=== PATIENT | female | born 1965 | race Caucasian/White ===

== ENCOUNTER 2021-08-02 15:24 | Inpatient (IN) | payer BC ==
[~2021-08-02] VITALS: Ht 149.9 cm; Wt 78.0 kg
[2021-08-02] MEDS ORDERED: SODIUM CHLORIDE 0.9% 500 ML IV ONE (17:00)
[2021-08-02 17:03] LABS: CLARITY URINE CLEAR (CLEAR); COLOR URINE YELLOW (YELLOW); KETONES URINE NEGATIVE (NEGATIVE); LEUKOCYTE ESTERASE URINE NEGATIVE (NEGATIVE); NITRITE URINE NEGATIVE (NEGATIVE); OCCULT BLOOD URINE NEGATIVE (NEGATIVE); PH URINE 6.5 (4.5-8.0); PROTEIN URINE NEGATIVE (NEGATIVE); UROBILINOGEN URINE 0.2 E.U./dL (0.2-1.0)
[2021-08-02 17:05] LABS: EOSINOPHILS % 10.4 % (0.0-5.0); HEMATOCRIT. 38.3 % (36.0-48.0); HEMOGLOBIN. 12.6 g/dL (12.0-16.0); LYMPHOCYTES % 16.8 % (20.0-50.0); MEAN CORPUSCULAR HEMOGLOBIN 28.3 pg (28.0-32.0); MEAN PLATELET VOLUME 7.7 fl (7.4-10.4); MONOCYTES % 6.9 % (2.0-8.0); NEUTROPHILS % 64.9 % (40.0-76.0); PLATELET 554 x1000/uL (130-400); RED BLOOD CELL COUNT 4.45 mill/uL (4.2-5.4); RED CELL DISTRIBUTION WIDTH 13.4 % (11.6-14.6)
[2021-08-02 17:11] LABS: CHLORIDE 110 mEq/L (98-107)
[2021-08-02 17:22] LABS: *AMPHETAMINES SCREEN URINE NEGATIVE (NEGATIVE); *BARBITURATES SCREEN URINE NEGATIVE (NEGATIVE)
[2021-08-02 17:23] LABS: *BENZODIAZEPINES SCREEN URINE NEGATIVE (NEGATIVE); *COCAINE SCREEN URINE NEGATIVE (NEGATIVE); METHADONE URINE SCREEN NEGATIVE (NEGATIVE); OPIATES URINE SCREEN NEGATIVE (NEGATIVE); PHENCYCLIDINE URINE SCREEN NEGATIVE (NEGATIVE)
[2021-08-02 17:24] LABS: CANNABINOID URINE SCREEN NEGATIVE (NEGATIVE)
[2021-08-03] MEDS ORDERED: FEXO1TAB MT (09:36)
[2021-08-03] MEDS ORDERED: FLUT1DIS3 INH (09:36)
[2021-08-03] MEDS ORDERED: SIMV5TAB58 PO (09:36)
[2021-08-03] MEDS ORDERED: ALBU6.7H9 INH (09:36)
[2021-08-03] MEDS ORDERED: LIDOCAINE HCL/PF 1% 2ML VIAL ONE (10:42)
[2021-08-03 11:08] LABS: BG BASE EXCESS -1.1 mmol/L (-2.0-2.0); BG CARBOXYHEMOGLOBIN 0.4 % (0.5-1.5); BG DEOXYHEMOGLOBIN 3.9 % (0.0-5.0); BG HCO3 ACT 23.1 mmol/L (22.0-26.0); BG METHEMOGLOBIN 0.3 % (0.0-1.5); BG OXYGEN SATURATION 96.1 % (92.0-98.5); BG OXYHEMOGLOBIN 95.4 % (94.0-97.0); BG PCO2 37.4 mmHg (35.0-45.0); BG PH 7.409 (7.350-7.450); BG PO2 81.9 mmHg (75.0-100.0); BG SAMPLE SITE RIGHT RADIAL; BG VENT MODE ROOM AIR
[2021-08-03 11:17] VITALS: BP 118/66
[2021-08-03] MEDS ORDERED: NORT10CA MT (11:51)
[2021-08-03] MEDS ORDERED: OMEP20CA14 MT (11:51)
[2021-08-03 12:00] VITALS: BP 128/72
[2021-08-03] MEDS: HEPARIN 5000 UNITS/ML VIAL SUBCUT SCH ×2 (12:26→21:11)
[2021-08-03] MEDS: LEVOFLOXACIN 500MG PREMIX 100 ML IV SCH (14:46)
[2021-08-03 16:00] VITALS: BP 141/68
[2021-08-03] MEDS: ACETAMINOPHEN 325MG TABLET PO PRN (18:30)
[2021-08-03] MEDS: IPRATROPIUM/ALBUTEROL 0.5-3(2.5)MG/3ML NEB HHN PRN (18:38)
[2021-08-03 20:00] VITALS: BP 104/50
[2021-08-04] VITALS: BP 115/59
[2021-08-04 04:00] VITALS: BP 130/50
[2021-08-04 08:00] VITALS: BP 99/50
[2021-08-04] MEDS: HEPARIN 5000 UNITS/ML VIAL SUBCUT SCH (09:00)
[2021-08-04] MEDS: IPRATROPIUM/ALBUTEROL 0.5-3(2.5)MG/3ML NEB HHN PRN (11:16)
[2021-08-04 12:00] VITALS: BP 122/81
[2021-08-04] MEDS: ACETAMINOPHEN 325MG TABLET PO PRN ×2 (12:51→20:22)
[2021-08-04] MEDS: LEVOFLOXACIN 500MG PREMIX 100 ML IV SCH (14:00)
[2021-08-04 16:00] VITALS: BP 111/66
[2021-08-04 20:00] VITALS: BP 113/62
[2021-08-05] VITALS: BP 110/66
[2021-08-05 04:00] VITALS: BP 116/62
[2021-08-05 06:42] LABS: BASOPHILS % 0.9 % (0.0-2.0); EOSINOPHILS % 13.2 % (0.0-5.0); HEMATOCRIT. 38.3 % (36.0-48.0); HEMOGLOBIN. 12.7 g/dL (12.0-16.0); LYMPHOCYTES % 18.2 % (20.0-50.0); MEAN CORPUSCULAR HEMOGLOBIN 28.8 pg (28.0-32.0); MEAN CORPUSCULAR VOLUME 87.1 fL (81.0-99.0); MEAN PLATELET VOLUME 7.7 fl (7.4-10.4); NEUTROPHILS % 59.7 % (40.0-76.0); PLATELET 540 x1000/uL (130-400); RED CELL DISTRIBUTION WIDTH 13.7 % (11.6-14.6)
[2021-08-05 07:38] LABS: CHLORIDE 106 mEq/L (98-107)
[2021-08-05 08:00] VITALS: BP 111/63
[2021-08-05 12:00] VITALS: BP 98/62
[2021-08-05 13:26] VITALS: BP 98/62
== END 2021-08-05 13:56 | disposition home or self-care (01) | DRG 181 ==
LOC: ER 15:24 → MICUSO 23:05 → 7EST 08-03 07:29
PROVIDERS: ADMIT Internal Medicine Pulmonary Disease; ATTEND Internal Medicine Pulmonary Disease
DX: C34.90 Malignant neoplasm of unspecified part of unspecified bronchus or lung (principal); E44.1 Mild protein-calorie malnutrition; J45.909 Unspecified asthma, uncomplicated; E87.6 Hypokalemia; E87.8 Other disorders of electrolyte and fluid balance, not elsewhere classified; F41.9 Anxiety disorder, unspecified; Z20.822 Contact with and (suspected) exposure to COVID-19; K21.9 Gastro-esophageal reflux disease without esophagitis; Z87.440 Personal history of urinary (tract) infections; Z77.120 Contact with and (suspected) exposure to mold (toxic); Z68.34 Body mass index [BMI] 34.0-34.9, adult; Z87.891 Personal history of nicotine dependence
CPT/HCPCS: 36415; 36600; 71045; 71250; 80048; 80053; 80305; 81003; 82375; 82805; 83036; 83880; 84484; 85025; 87426; 93005; 94640; 99285; J1644; J1956; J3490; J7040